=== PATIENT | female | born 1945 | race Caucasian/White ===

== ENCOUNTER → 2021-07-28 | Outpatient (CLI) | payer MEDICARE ==
--- NOTE | 2021-07-28 16:25 | Diagnostic Imaging Report ---
INDICATION: Left shoulder pain. FINDINGS: 3 views. Glenohumeral joint shows good alignment. There is narrowing of the joint space. There are large osteophytes along the inferior aspect humeral head. There are sclerotic changes along the articulating surface with subcortical cystic change. AC joint shows good alignment with mild hypertrophic arthritic change. There are no fractures. No soft tissue calcification. IMPRESSION: Severe osteoarthritic changes of the glenohumeral joint with the mild arthritic changes of the AC joint. Dictated by: Dictated on workstation # [id number]
== END ==
LOC: ORTHO 14:15
PROVIDERS: ATTEND Orthopaedic Surgery
DX: M19.012 Primary osteoarthritis, left shoulder (principal)
CPT/HCPCS: 20610; 73030